=== PATIENT | female | born 1955 | race Caucasian/White ===

== ENCOUNTER → 2019-09-29 11:29 | Outpatient (BNVA) | payer MEDICARE, SELFPAY | PROVIDERS: Family Provider Internal Medicine; PCP Internal Medicine; Visit Provider Orthopaedic Surgery | DX: S42.211A Unspecified displaced fracture of surgical neck of right humerus, initial encounter for closed fracture (principal); X58.XXXA Exposure to other specified factors, initial encounter | CPT/HCPCS: 73030 ==

== ENCOUNTER 2019-10-01 06:00 | Outpatient (RCR) | payer MEDICARE, SELFPAY | END 2019-10-16 23:59 | disposition home or self-care (01) | LOC: APT 06:00 | PROVIDERS: Family Provider Internal Medicine; PCP Internal Medicine; Referring Provider Orthopaedic Surgery; Visit Provider Orthopaedic Surgery | DX: S42.201D Unspecified fracture of upper end of right humerus, subsequent encounter for fracture with routine healing (principal); X58.XXXD Exposure to other specified factors, subsequent encounter | CPT/HCPCS: 97110; 97161 ==

== ENCOUNTER 2019-10-17 06:00 | Outpatient (RCR) | payer MEDICARE, SELFPAY | END 2019-11-14 23:59 | disposition home or self-care (01) | LOC: APT 06:00 | PROVIDERS: Family Provider Internal Medicine; PCP Internal Medicine; Referring Provider Orthopaedic Surgery; Visit Provider Orthopaedic Surgery | DX: S42.201D Unspecified fracture of upper end of right humerus, subsequent encounter for fracture with routine healing (principal); X58.XXXD Exposure to other specified factors, subsequent encounter | CPT/HCPCS: 97110; 97112 ==

== ENCOUNTER → 2019-10-26 13:03 | Outpatient (BNVA) | payer MEDICARE, SELFPAY | PROVIDERS: Family Provider Internal Medicine; PCP Internal Medicine; Visit Provider Orthopaedic Surgery | DX: S42.211A Unspecified displaced fracture of surgical neck of right humerus, initial encounter for closed fracture (principal); X58.XXXA Exposure to other specified factors, initial encounter | CPT/HCPCS: 73030 ==

== ENCOUNTER 2019-11-15 06:00 | Outpatient (RCR) | payer MEDICARE, SELFPAY | END 2019-12-15 23:59 | disposition home or self-care (01) | LOC: APT 06:00 | PROVIDERS: Family Provider Internal Medicine; PCP Internal Medicine; Referring Provider Orthopaedic Surgery; Visit Provider Orthopaedic Surgery | DX: S42.201D Unspecified fracture of upper end of right humerus, subsequent encounter for fracture with routine healing (principal); X58.XXXD Exposure to other specified factors, subsequent encounter | CPT/HCPCS: 97110; 97112; 97140; 97164 ==

== ENCOUNTER → 2019-11-24 14:06 | Outpatient (BNVA) | payer MEDICARE, SELFPAY | PROVIDERS: Family Provider Internal Medicine; PCP Internal Medicine; Visit Provider Orthopaedic Surgery | DX: S42.201A Unspecified fracture of upper end of right humerus, initial encounter for closed fracture (principal); X58.XXXA Exposure to other specified factors, initial encounter | CPT/HCPCS: 73030 ==

== ENCOUNTER 2019-12-16 06:00 | Outpatient (RCR) | payer MEDICARE, SELFPAY | END 2020-01-14 23:59 | disposition home or self-care (01) | LOC: APT 06:00 | PROVIDERS: Family Provider Internal Medicine; PCP Internal Medicine; Referring Provider Orthopaedic Surgery; Visit Provider Orthopaedic Surgery | DX: S42.211D Unspecified displaced fracture of surgical neck of right humerus, subsequent encounter for fracture with routine healing (principal); X58.XXXD Exposure to other specified factors, subsequent encounter | CPT/HCPCS: 97110 ==

== ENCOUNTER → 2019-12-28 09:59 | Outpatient (BNVA) | payer MEDICARE, SELFPAY | PROVIDERS: Family Provider Internal Medicine; PCP Internal Medicine; Visit Provider Orthopaedic Surgery | DX: S42.201A Unspecified fracture of upper end of right humerus, initial encounter for closed fracture (principal); X58.XXXA Exposure to other specified factors, initial encounter | CPT/HCPCS: 73030 ==

== ENCOUNTER 2020-04-04 13:19 | Outpatient (CLI) | payer MEDICARE, SELFPAY ==
--- NOTE | 2020-04-04 13:23 | MM_ITS ---
WS: [id number] SCREENING DIGITAL MAMMOGRAM WITH CAD HISTORY: SCREENING COMPARISON: 02/02/2019, 01/13/2018, 01/07/2018 and 11/06/2016 Bilateral CC and MLO views submitted. Computer aided detection analyzed. Breast composition: There are scattered areas of fibroglandular density. Small cluster of calcificati ons along the lateral aspect of the RIGHT breast posteriorly near 8-9 o'clock. These calcifications w ere seen on prior studies but have slightly increased in conspicuity. There is also very slight disto rtion of soft tissues. RIGHT BREAST: Magnification views of suspicious calcification CC and MLO. True ML. MM/[place] [id number] IMPRESSION: BI-RADS: 0-Incomplete: Need additional imaging evaluation FOLLOW UP: Need Additional Imaging
== END 2020-04-04 13:20 | disposition home or self-care (01) ==
LOC: RADSHAW 13:22
PROVIDERS: PCP Internal Medicine; Visit Provider Internal Medicine
DX: Z12.31 Encounter for screening mammogram for malignant neoplasm of breast (principal); R92.1 Mammographic calcification found on diagnostic imaging of breast
CPT/HCPCS: 77067

== ENCOUNTER 2020-05-27 08:44 | Outpatient (CLI) | payer MEDICARE, SELFPAY ==
--- NOTE | 2020-05-27 08:50 | MM_ITS ---
WS: [id number] ADDITIONAL VIEWS RIGHT BREAST HISTORY: RT BREAST ABNORMAL MAMMO COMPARISON: 04/04/2020, 02/02/2019 at 01/13/2018 Magnification views right CC and MLO projection. True ML also submitted. Small cluster of calcifications persists in the lateral RIGHT breast posteriorly near 3:00 axis. Some of these calcifications are lucent center suggesting benignity. Additional calcifications or more so lid and irregular. No distortion. No soft tissue mass. MM/[place] [id number] IMPRESSION: BI-RADS: 4-Suspicious Finding-Biopsy Should Be Considered FOLLOW-UP: Biopsy Recommended Stereotactic biopsy RIGHT breast calcifications.
== END 2020-05-27 08:45 | disposition home or self-care (01) ==
LOC: RADSHAW 08:46
PROVIDERS: PCP Internal Medicine; Visit Provider Internal Medicine
DX: R92.8 Other abnormal and inconclusive findings on diagnostic imaging of breast (principal); R92.1 Mammographic calcification found on diagnostic imaging of breast
CPT/HCPCS: 77065

== ENCOUNTER 2020-06-09 11:56 | Outpatient (CLI) | payer MEDICARE, SELFPAY ==
--- NOTE | 2020-06-09 | MM_ITS ---
WS: [id number] STEREOTACTIC RIGHT BREAST BIOPSY WITH VACUUM ASSISTANCE. History: Heterogeneous right breast calcifications. Biopsy recommended for suspicious calcifications. Procedure, risks, and complications were discussed the patient who agreed to proceed. Prior imaging w as reviewed. Cluster of calcifications within the right breast are localized. Stereotactic imaging was performed. Patient was prepped and draped in usual sterile fashion. After 1% lidocaine, calcifications were targ eted stereotactically in the right breast. Small incision was made. Needle advanced into the cluster of calcifications right breast with imaging demonstrating appropriate position relative to the calcif ications. Multiple vacuum-assisted core biopsies were obtained. Postprocedure imaging demonstrates ca lcifications within the biopsy specimen. The biopsy cavity was lavaged. Titanium clip was placed at the biopsy site. Postprocedure imaging dem onstrates clip in good position. No immediate complications. MM/MM surgical specimen RT IMPRESSION: 1. Uncomplicated vacuum-assisted stereotactic biopsy of calcifications in the right breast. Pathology: Breast, right, calcifications at 1:00, stereotactic biopsy: -Focal ATYPICAL DUCTAL HYPERPLASIA with usual ductal hyperplasia. -No invasive carcinoma or ductal carcinoma in situ (DCIS) identified. -Microcalcifications identified within the ADH. See pathology report for additional detail Recommend BREAST SURGERY consultation for surgical excision considering the ADH component
--- NOTE | 2020-06-09 12:13 | MM_ITS ---
WS: [id number] STEREOTACTIC RIGHT BREAST BIOPSY WITH VACUUM ASSISTANCE. History: Heterogeneous right breast calcifications. Biopsy recommended for suspicious calcifications. Procedure, risks, and complications were discussed the patient who agreed to proceed. Prior imaging w as reviewed. Cluster of calcifications within the right breast are localized. Stereotactic imaging was performed. Patient was prepped and draped in usual sterile fashion. After 1% lidocaine, calcifications were targ eted stereotactically in the right breast. Small incision was made. Needle advanced into the cluster of calcifications right breast with imaging demonstrating appropriate position relative to the calcif ications. Multiple vacuum-assisted core biopsies were obtained. Postprocedure imaging demonstrates ca lcifications within the biopsy specimen. The biopsy cavity was lavaged. Titanium clip was placed at the biopsy site. Postprocedure imaging dem onstrates clip in good position. No immediate complications. MM/[place] biopsy [place] vac assist [id number] IMPRESSION: 1. Uncomplicated vacuum-assisted stereotactic biopsy of calcifications in the right breast. Pathology: Breast, right, calcifications at 1:00, stereotactic biopsy: -Focal ATYPICAL DUCTAL HYPERPLASIA with usual ductal hyperplasia. -No invasive carcinoma or ductal carcinoma in situ (DCIS) identified. -Microcalcifications identified within the ADH. See pathology report for additional detail Recommend BREAST SURGERY consultation for surgical excision considering the ADH component
--- NOTE | 2020-06-09 12:13 | MM_ITS ---
WS: [id number] STEREOTACTIC RIGHT BREAST BIOPSY WITH VACUUM ASSISTANCE. History: Heterogeneous right breast calcifications. Biopsy recommended for suspicious calcifications. Procedure, risks, and complications were discussed the patient who agreed to proceed. Prior imaging w as reviewed. Cluster of calcifications within the right breast are localized. Stereotactic imaging was performed. Patient was prepped and draped in usual sterile fashion. After 1% lidocaine, calcifications were targ eted stereotactically in the right breast. Small incision was made. Needle advanced into the cluster of calcifications right breast with imaging demonstrating appropriate position relative to the calcif ications. Multiple vacuum-assisted core biopsies were obtained. Postprocedure imaging demonstrates ca lcifications within the biopsy specimen. The biopsy cavity was lavaged. Titanium clip was placed at the biopsy site. Postprocedure imaging dem onstrates clip in good position. No immediate complications. MM/[place] [id number] IMPRESSION: 1. Uncomplicated vacuum-assisted stereotactic biopsy of calcifications in the right breast. Pathology: Breast, right, calcifications at 1:00, stereotactic biopsy: -Focal ATYPICAL DUCTAL HYPERPLASIA with usual ductal hyperplasia. -No invasive carcinoma or ductal carcinoma in situ (DCIS) identified. -Microcalcifications identified within the ADH. See pathology report for additional detail Recommend BREAST SURGERY consultation for surgical excision considering the ADH component
[2020-06-09 13:01] LABS: INR 0.92 (0.8-1.2)
== END 2020-06-09 11:57 | disposition home or self-care (01) ==
LOC: RADSHAW 12:01
PROVIDERS: PCP Internal Medicine; Visit Provider Internal Medicine
DX: R92.1 Mammographic calcification found on diagnostic imaging of breast (principal); N60.91 Unspecified benign mammary dysplasia of right breast
CPT/HCPCS: 19081; 77065; 85610; 88305; J7050

== ENCOUNTER 2020-07-20 13:01 | Outpatient (CLI) | payer MEDICARE, SELFPAY ==
--- NOTE | 2020-07-20 16:50 | ONC CON_ITS ---
Dr. Thompson New Patient Note Patient: Yue Ngo Unit #: [id number]: 1955 Dicatated By: Keshia Thompson M.D.Date of Visit: Jul 20, 2020 Onc MED New Patient/Consult Referring Physician: Dr. PERLA ARRIAZA M.D. History of Present Illness: Ms. Yue Ngo, is a 65-year-old female who ,during routine yearly mammogram, was found to have small clusters of calcification along the lateral aspect of the right breast posteriorly near the 8-9 o'clock and this calcification was seen on prior studies but have slightly increased in conspicuity thus, underwent stereotactic biopsy on June 09, 2020 and biopsy report came back focal atypical ductal hyperplasia with usual ductal hyperplasia, no invasive carcinoma or ductal carcinoma in situ identified, microcalcifications identified within the ADH. Patient has no family history of breast cancer, no history of breast biopsies in the past, but she has history of hormone supplement primary but last time she took about 10 years ago and still taking multivitamin for women. Patient denies any alcohol use but used to take off and on. Denies smoking but a former smoker. Her age of menarche was 11, and first living baby was at age 17. Denies any nipple discharge, denies any palpable mass in the breast but she has history of fibrocystic disease for which she gets yearly mammogram. Past Medical History: Ms. Ngo's medical history consists of anxiety, degenerative disease of the spine, depression, fibromyalgia, hypertension, and hypothyroidism. Past Surgical History: Ms. Hurtados surgical/procedural history consists of colposcopy, hysterectomy/bilateral salpingectomy-oophorectomy, knee arthroscopy, and tonsillectomy. Medications: Gabapentin 1 Capsule (of 300 mg) Oral t.i.d., hydroCHLOROthiazide 1 Tablet (of 25 mg) Oral daily, Levothyroxine Sodium 1 CA 125 Units/mL (of 75 mcg) Tablet Oral daily, [place] Carbonate 1 Capsule (of 150 mg) Oral b.i.d., Sertraline HCl 1 Tablet (of 100 mg) Oral daily Allergies: Milnacipran HCl, Nortriptyline HCl, and Penicillins. Social History: Ms. Ngo is and she is an unknown. Ms. Ngo quit smoking 5 years ago but had smoked 1.0 pack/day for 46 years. She has no history of drinking. Family History: Ms. Ngo's mother is alive: hypertension. Ms. Ngo's father at age 72: heart disease. Review Of Symptoms: Constitutional - Appetite is good and weight is stable. No fever, night sweats, or hot flashes. Energy level is fair, ENMT - Positive for sinus congestion/drainage. No mouth sores. Positive for sore throat, no difficulty swallowing, Hematologic/Lymphatic - No abnormal bruising or bleeding, Respiratory - No shortness of breath. No cough. No pleuritic pain or hemoptysis, Cardiovascular - No angina pain. No palpitations, Gastrointestinal - No nausea or vomiting. Positive for heartburn and acid reflux. No diarrhea or constipation. No blood in the stool or black stools, Genitourinary (F) - No dysuria or hematuria. No urinary frequency. No urgency or incontinence, Musculoskeletal - No joint or bone pain, Neurologic - No headache or dizziness. No numbness or tingling. No other focal neurologic symptoms, Psychiatric - Positive for anxiety and depression. No insomnia. Vital Signs: Performed on Jul 20, 2020 14:11: 0, 35.02 (HIGH), 1.97 sq.m, 64.00 in, 100 %, 60 /min, 24 /min, 145/75 mm(hg) (HIGH), 97.2 F (LOW), and 204.0 lbs (HIGH). Performance Status: 0 - Fully active, able to carry on all predisease activities without restrictions. (ECOG) Physical Examination: ENMT - No mouth sores, no thrush, no jaundice, Respiratory - Lungs are clear to auscultation, Cardiovascular - Regular rate and rhythm of heart, Abdomen - Soft, bowel sounds present, Extremities - No visible edema. Lab/Imaging: Most recent lab results are not available for this patient. Impression: Atypical ductal hyperplasia involving the right breast per stereotactic biopsy of right breast done on June 09, 2020 Obesity History of hormone supplement, Premarin, last dose was taken about 10 years ago, now on multivitamin for women. History of hypertension, hypothyroidism, ZAKIA and BSO on August 16, 2003. Anxiety/depression Plan: Discussed with patient regarding her right breast biopsy which was done on June 09, 2020 and shows atypical ductal hyperplasia, no evidence of ductal carcinoma site to or invasive carcinoma. Patient was advised that atypical ductal hyperplasia is not a cancer but is a precancerous condition and over the course of her lifetime, her risk of breast cancer is about 4 times higher than that women who do not have atypical ductal hyperplasia, and research has shown the risk of breast cancer increases in the years after atypical ductal hyperplasia is diagnosed like at 5 years after diagnosis she has about 7 to 8% risk of developing into invasive carcinoma and 10-year after diagnosis about 15%. Typically, patient with atypical ductal hyperplasia are offered various options which may reduce risk of developing invasive breast cancer including but not limited to lifestyle modification, in her case especially with weight reduction and regular exercise no alcohol use avoidance of estrogen in any form including herbs. And in addition to that regular mammogram follow-up on yearly basis and if there is any abnormality possible breast biopsy. And also discussed about role of hormonal therapy like tamoxifen, aromatase inhibitor or raloxifene, considering side effect versus benefits, raloxifene has better toxicity profile but still there is a risk of DVTs, pulmonary embolism, CVA, hypertriglyceridemia. And the patient was also offered referral to tertiary care center for any clinical trial available for breast cancer prevention or second opinion on biopsy report. Patient declined referral to tertiary care center and also declined hormonal therapy because of related side effects and toxicity. But rather prefer observation alone and would consider lifestyle changes including weight reduction planned and active lifestyle and avoid estrogen-based hormones in any form. Patient was given information regarding raloxifene and was advised to study and review and then return to clinic in 1 month for discussion. Signed By: Keshia Thompson M.D. <<Signature on File>>
== END 2020-07-20 13:02 | disposition home or self-care (01) ==
LOC: ONCMED 13:04
PROVIDERS: PCP Internal Medicine; Referring Provider Internal Medicine; Visit Provider Internal Medicine Hematology & Oncology
DX: N60.91 Unspecified benign mammary dysplasia of right breast (principal); E66.01 Morbid (severe) obesity due to excess calories; I10 Essential (primary) hypertension; E03.9 Hypothyroidism, unspecified; F41.9 Anxiety disorder, unspecified; F32.9 Major depressive disorder, single episode, unspecified; Z79.818 Long term (current) use of other agents affecting estrogen receptors and estrogen levels
CPT/HCPCS: 99203

== ENCOUNTER 2020-08-22 15:09 | Outpatient (CLI) | payer MEDICARE, SELFPAY ==
--- NOTE | 2020-08-22 16:54 | ONC FU_ITS ---
Dr. Thompson follow up note Patient: Yue Ngo Unit #: [id number]: 1955 Dicatated By: Keshia Thompson M.D.Date of Visit:Aug 22, 2020 Onc Med Follow-up/Prog Note History of Present Illness: Ms. Yue Ngo, is a 65-year-old female who ,during routine yearly mammogram, was found to have small clusters of calcification along the lateral aspect of the right breast posteriorly near the 8-9 o'clock and this calcification was seen on prior studies but have slightly increased in conspicuity thus, underwent stereotactic biopsy on June 09, 2020 and biopsy report came back focal atypical ductal hyperplasia with usual ductal hyperplasia, no invasive carcinoma or ductal carcinoma in situ identified, microcalcifications identified within the ADH. Patient has no family history of breast cancer, no history of breast biopsies in the past, but she has history of hormone supplement primary but last time she took about 10 years ago and still taking multivitamin for women. Patient denies any alcohol use but used to take off and on. Denies smoking but a former smoker. Her age of menarche was 11, and first living baby was at age 17. Denies any nipple discharge, denies any palpable mass in the breast but she has history of fibrocystic disease for which she gets yearly mammogram. Came for follow-up, denies any specific complaints, no fever chills, no nausea or vomiting, no diarrhea or constipation, patient said she has read about raloxifene, she is here to discuss further. Medications: Gabapentin 1 Capsule (of 300 mg) Oral t.i.d., hydroCHLOROthiazide 1 Tablet (of 25 mg) Oral daily, Levothyroxine Sodium 1 CA 125 Units/mL (of 75 mcg) Tablet Oral daily, [place] Carbonate 1 Capsule (of 150 mg) Oral b.i.d., Sertraline HCl 1 Tablet (of 100 mg) Oral daily Allergies: Milnacipran HCl, Nortriptyline HCl, and Penicillins. Review of Systems: Constitutional - Appetite is good and weight is stable. No fever, night sweats, or hot flashes. Energy level is fair, ENMT - Positive for sinus congestion/drainage. No mouth sores. Positive for sore throat, no difficulty swallowing, Hematologic/Lymphatic - No abnormal bruising or bleeding, Respiratory - No shortness of breath. No cough. No pleuritic pain or hemoptysis, Cardiovascular - No angina pain. No palpitations, Gastrointestinal - No nausea or vomiting. Positive for heartburn and acid reflux. No diarrhea or constipation. No blood in the stool or black stools, Genitourinary (F) - No dysuria or hematuria. No urinary frequency. No urgency or incontinence, Musculoskeletal - No joint or bone pain, Neurologic - No headache or dizziness. No numbness or tingling. No other focal neurologic symptoms, Psychiatric - Positive for anxiety and depression. No insomnia. Vital Signs: Performed on Aug 22, 2020 15:55 Height - 64.00 in Weight - 205.6 lbs (HIGH) BSA - 1.98 sq.m BMI - 35.29 (HIGH) Temperature - 97.4 F (LOW) Pulse - 70 /min Respiration - 18 /min BP - 150/84 mm(hg) (HIGH) O2 Sat - 97 % Pain - 0 Performance Status: 0 - Fully active, able to carry on all predisease activities without restrictions. (ECOG) Physical Examination: ENMT - No mouth sores, no thrush, no jaundice, Respiratory - Lungs are clear to auscultation, Cardiovascular - Regular rate and rhythm of heart, Abdomen - Soft, bowel sounds present, Extremities - No visible edema. Lab/Imaging: Most recent lab results are not available for this patient. Impression: Atypical ductal hyperplasia involving the right breast per stereotactic biopsy of right breast done on June 09, 2020 Obesity History of hormone supplement, Premarin, last dose was taken about 10 years ago, now on multivitamin for women. History of hypertension, hypothyroidism, ZAKIA and BSO on August 16, 2003. Anxiety/depression Plan: Discussed with patient regarding her disease status, as mentioned earlier patient had atypical ductal hyperplasia which make her high risk for developing breast cancer, she was offered preventive therapy with raloxifene and was provided with literature, and also offered evaluation at tertiary care center regarding breast cancer prevention related clinical trial, if available., Patient came back today for follow-up and have decided reluctantly to consider raloxifene 60 mg p.o. daily for 1 month if tolerated then she will continue otherwise would prefer observation alone with a follow-up mammogram which is scheduled for in 6 months and also declined referral to tertiary care center for clinical trial. We will give her prescription for raloxifene 60 mg p.o. daily, all the side effects possible benefits associated with raloxifene like hot flashes, risk of thromboembolic phenomena, mood swings, were mentioned, further teaching will be done by chemotherapy nurse Patient return to clinic in 1 month for follow-up. Signed By: Keshia Thompson M.D. <<Signature on File>>
== END 2020-08-22 15:10 | disposition home or self-care (01) ==
LOC: ONCMED 15:11
PROVIDERS: PCP Internal Medicine; Visit Provider Internal Medicine Hematology & Oncology
DX: N60.91 Unspecified benign mammary dysplasia of right breast (principal); E66.9 Obesity, unspecified; I10 Essential (primary) hypertension; E03.9 Hypothyroidism, unspecified; F41.9 Anxiety disorder, unspecified; F32.9 Major depressive disorder, single episode, unspecified; Z79.890 Hormone replacement therapy
CPT/HCPCS: 99214

== ENCOUNTER 2020-11-07 09:28 | Outpatient (CLI) | payer MEDICARE, SELFPAY ==
--- NOTE | 2020-11-11 19:45 | ONC FU_ITS ---
Leticia Hirsch Patient Note Patient: Yue Ngo Unit #: [id number]: 1955 Dictated By: Pura HanDate of Visit: Nov 07, 2020 Onc MED Follow-Up/Prog Note Chief Complaint: Atypical ductal hyperplasia right breast History of Present Illness: Ms. Ngo is a 65-year-old female who was found to have small clusters of calcification along the lateral aspect of the right breast- posteriorly near the 8-9 o'clock on routine mammogram on 04/04/2020. This calcification was seen on prior studies but had slightly increased in conspicuity. She then underwent stereotactic biopsy on June 09, 2020. The biopsy report came back focal atypical ductal hyperplasia with usual ductal hyperplasia; no invasive carcinoma or ductal carcinoma in situ identified; microcalcifications identified within the ADH. Ms Ngo reports she has no family history of breast cancer, no history of breast biopsies in the past, but she has history of hormone supplement primary. The last time she took hormones was about 10 years ago. She states she is still taking multivitamin for women. Patient denies any alcohol use. Denies smoking currently but is a former smoker. Her age of menarche was 11, and first living baby was at age 17. Denies any nipple discharge, denies any palpable mass in the breast but she has history of fibrocystic disease for which she gets yearly mammogram. Ms Ferguson was seen by Dr Thompson on 08/22/2020. They did discuss raloxifene for preventative therapy. She was also offered evaluation at tertiary [facility] regarding breast cancer prevention related clinical trial but declined that referral. She did agree to a trial of the raloxifene. She is also aware that she will need follow-up mammogram in 6 months. Ms. Ngo is here today for follow-up. She did take the raloxifene for 1 month and states she tolerated it well. She was not given any refills at the original prescription. She has had delay of her follow-up due to increment weather. She states she feels that she has tolerated it well. She states that she has not had any increase in hot flashes. She denies any mood swings. She denies any fever or chills. She states she has noticed some dry eyes but states that she also has propane heat and count of contributed to that as well. The dry eyes do respond to ghbm-gge-ytorzed eyedrops. She denies any taste changes. She denies any bone pain or muscle aches. She states her energy is good. She has no new concerns. She denies any breast changes that she is aware of. She states she is due for mammogram in November. She denies any diarrhea or constipation. She denies any lower extremity edema. She states that she has not had any shortness of breath orthopnea. Her ECOG is 0. Past Medical History: Anxiety Degenerative disease of the spine Depression Fibromyalgia Hypertension Hypothyroidism Past Surgical History: Colposcopy Hysterectomy/bilateral salpingectomy-oophorectomy Knee arthroscopy Tonsillectomy Allergies: Milnacipran HCl, Nortriptyline HCl, and Penicillins. Medications: Gabapentin 1 Capsule (of 300 mg) Oral t.i.d. hydroCHLOROthiazide 1 Tablet (of 25 mg) Oral b.i.d. Levothyroxine Sodium 1 CA 125 Units/mL (of 75 mcg) Tablet Oral daily [place] Carbonate 1 Capsule (of 150 mg) Oral b.i.d. Sertraline HCl 1 Tablet (of 100 mg) Oral daily Family History: Ms. Ngo's mother is alive: hypertension. Ms. Ngo's father at age 72: heart disease. Social History: Ms. Ngo is and she is an unknown. Ms. Ngo quit smoking 6 years ago but had smoked 1.0 pack/day for 46 years. She has no history of drinking. Review Of Symptoms: Constitutional Denies fevers, chills, night sweats, excessive fatigue or weight loss. Allergic/Immunologic No reactions. Eyes Denies significant visual changes. No diplopia. No amaurosis. Some dryness but thinks it could be do to using propane heat. ENMT Denies changes in hearing, sore throat, mouth sores, difficulty or changes in swallowing ability, and/or sinus drainage. Hematologic/Lymphatic Denies easy bruising or bleeding. The patient denies any tender or palpable lymph nodes. Breasts No concerns, no changes. Respiratory Denies dyspnea on exertion, chest pain, cough or hemoptysis. Denies orthopnea. Cardiovascular Denies anginal chest pain, palpitations or orthopnea. Gastrointestinal Denies nausea, vomiting, diarrhea, GI bleeding, or constipation. Denies change in bowel habits and/or stool color, no heartburn or early satiety. Genitourinary (F) No hematuria, hesitancy, incontinence, vaginal bleeding, discharge or other problems with urination. Musculoskeletal Denies joint pain, swelling or redness. No decreased range of motion. Integumentary Denies chronic rashes, inflammation, ulcerations or skin changes. Neurologic Denies headache, blurred vision, and no areas of focal weakness or numbness. Normal gait. No sensory problems. Psychiatric Denies insomnia, depression, elder or mood swings. Vital Signs: Performed on Nov 07, 2020 09:45 Height - 64.00 in Weight - 206.6 lbs (HIGH) BSA - 1.98 sq.m BMI - 35.46 (HIGH) Temperature - 97.1 F (LOW) Pulse - 67 /min Respiration - 18 /min BP - 161/74 mm(hg) (HIGH) O2 Sat - 98 % Pain - 0,0 - Fully active, able to carry on all predisease activities without restrictions. (ECOG) Physical Examination: Constitutional Alert, oriented, no acute distress. Skin pink, warm and dry. Head Normocephalic; atraumatic. Eyes Conjunctivae and sclerae are clear and without icterus. Pupils are reactive and equal. Hematologic/Lymphatic No petechiae or purpura. No tender or palpable lymph nodes in the cervical or supraclavicular areas. Respiratory Lungs are clear to auscultation without rhonchi or wheezing. Cardiovascular Regular rate and rhythm of heart without murmurs,clicks, gallops or rubs. Back/Spine Non-tender to palpation. Extremities No visible deformities, no cyanosis, clubbing or edema. Musculoskeletal No tenderness or swelling, normal range of motion without obvious weakness. Integumentary No rashes or lesions. Neurologic No sensory or motor deficits, normal cerebellar function, normal gait. Psychiatric Alert and oriented times three. Coherent speech. Verbalizes understanding of our discussions today. Impression: Atypical ductal hyperplasia involving the right breast per stereotactic biopsy of right breast done on June 09, 2020 Obesity History of hormone supplement, Premarin, last dose was taken about 10 years ago, now on multivitamin for women. History of hypertension, hypothyroidism, ZAKIA and BSO on August 16, 2003. Anxiety/depression Plan: PROBLEMS ADDRESSED TODAY 1. Atypical ductal hyperplasia involving the right breast A. Dr Thompson has discussed with Ms Ngo her disease status, as mentioned earlier patient had atypical ductal hyperplasia which make her high risk for developing breast cancer. She was offered preventive therapy with raloxifene. She was also offered evaluation at [facility] regarding breast cancer prevention related clinical trial, if available but she declined a referral to [facility] for clinical trial at this time. B. She has had a trial of 1 month of raloxifene 60 mg daily and is tolerated this well. She did not have refills so she has been off of it for approximately 2 weeks. C. We will plan to refill her raloxifene 60 mg with additional refills and have her resume it as she is tolerating it well. D. She will be due for follow-up mammography in November 2020. E. We will have her return back to see Dr. Thompson in 1 month after she has had her follow-up mammogram so they can review the results and determine further plan of care and follow-up plan. F. Ms. Ngo was instructed to contact us in the interim should questions or problems arise. Signed By: Pura Han-, AODELIA Thompson <<Signature on File>>
== END 2020-11-07 09:29 | disposition home or self-care (01) ==
LOC: ONCMED 09:33
PROVIDERS: PCP Internal Medicine; Visit Provider Nurse Practitioner
DX: N60.91 Unspecified benign mammary dysplasia of right breast (principal); Z79.899 Other long term (current) drug therapy
CPT/HCPCS: 99214

== ENCOUNTER 2021-01-10 12:47 | Outpatient (CLI) | payer MEDICARE, SELFPAY ==
--- NOTE | 2021-01-10 13:03 | MM_ITS ---
WS: [id number] DIAGNOSTIC BILATERAL DIGITAL MAMMOGRAM WITH CAD HISTORY: HYPERPLASIA COMPARISON: 06/09/2020, 04/04/2020 and 02/02/2019 and 10/27/2015 TECHNIQUE: Bilateral craniocaudad, mediolateral oblique, and mediolateral views are submitted. Spot c ompression RIGHT MLO and cc. Computer aided detection utilized. Breast composition: There are scattered areas of fibroglandular density. Postbiopsy changes in the up per outer quadrant of the RIGHT breast are stable. There is a biopsy clip present. No increasing calc ification or soft tissue mass at this site. Long-term stability of a linear asymmetry with calcificat ions in the medial RIGHT breast anteriorly. Bilateral breast arterial calcifications. MM/[id number] IMPRESSION: BI-RADS: 2-Benign FOLLOW UP: 1 Year Follow-up
--- NOTE | 2021-01-10 16:40 | ONC FU_ITS ---
Dr. Thompson follow up note Patient: Yue Ngo Unit #: [id number]: 1955 Dicatated By: Keshia Thompson M.D.Date of Visit:Jan 10, 2021 Onc Med Follow-up/Prog Note History of Present Illness: Ms. Ngo is a 65-year-old female who was found to have small clusters of calcification along the lateral aspect of the right breast- posteriorly near the 8-9 o'clock on routine mammogram on 04/04/2020. This calcification was seen on prior studies but had slightly increased in conspicuity. She then underwent stereotactic biopsy on June 09, 2020. The biopsy report came back focal atypical ductal hyperplasia with usual ductal hyperplasia; no invasive carcinoma or ductal carcinoma in situ identified; microcalcifications identified within the ADH. Ms Ngo reports she has no family history of breast cancer, no history of breast biopsies in the past, but she has history of hormone supplement primary. The last time she took hormones was about 10 years ago. She states she is still taking multivitamin for women. Patient denies any alcohol use. Denies smoking currently but is a former smoker. Her age of menarche was 11, and first living baby was at age 17. Denies any nipple discharge, denies any palpable mass in the breast but she has history of fibrocystic disease for which she gets yearly mammogram. Ms Ferguson was seen on 08/22/2020. did discuss raloxifene for preventative therapy. She was also offered evaluation at tertiary [facility] regarding breast cancer prevention related clinical trial but declined that referral. She did agree to a trial of the raloxifene. She is also aware that she will need follow-up mammogram in 6 months. Follow-up mammogram done on January 10, 2021 shows BI-RADS 2, benign Came for follow-up, denies any specific complaints, no fever chills, no nausea or vomiting, no diarrhea or constipation, no night sweats, tolerating raloxifene well otherwise Medications: Gabapentin 1 Capsule (of 300 mg) Oral t.i.d., hydroCHLOROthiazide 1 Tablet (of 25 mg) Oral b.i.d., Levothyroxine Sodium 1 CA 125 Units/mL (of 75 mcg) Tablet Oral daily, [place] Carbonate 1 Capsule (of 150 mg) Oral b.i.d., Sertraline HCl 1 Tablet (of 100 mg) Oral daily Allergies: Milnacipran HCl, Nortriptyline HCl, and Penicillins. Review of Systems: Review of Systems is not available for this patient. Vital Signs: Performed on Jan 10, 2021 14:39 Height - 64.00 in Weight - 200.8 lbs (LOW) BSA - 1.96 sq.m BMI - 34.47 (HIGH) Temperature - 97.5 F (LOW) Pulse - 62 /min Respiration - 18 /min BP - 141/74 mm(hg) (HIGH) O2 Sat - 98 % Pain - 0 Fatigue - 5 Performance Status: 0 - Fully active, able to carry on all predisease activities without restrictions. (ECOG) Physical Examination: ENMT - No mouth sores, no thrush, no jaundice, Respiratory - Lungs are clear to auscultation, Cardiovascular - Regular rate and rhythm of heart, Abdomen - Soft, bowel sounds present, Extremities - No visible edema. Lab/Imaging: Most recent lab results are not available for this patient. Impression: Atypical ductal hyperplasia involving the right breast per stereotactic biopsy of right breast done on June 09, 2020, Started on raloxifene 60 mg p.o. daily Obesity History of hormone supplement, Premarin, last dose was taken about 10 years ago, now on multivitamin for women. History of hypertension, hypothyroidism, ZAKIA and BSO on August 16, 2003. Anxiety/depression Plan: Discussed with patient regarding her mammogram which shows no abnormality, Clinically, patient doing well with no new signs symptoms, tolerating raloxifene as a chemoprevention well, will continue with same and return to clinic in 6 months for follow-up and will also continue with yearly mammogram Signed By: Keshia Thompson M.D. <<Signature on File>>
== END 2021-01-10 12:48 | disposition home or self-care (01) ==
PROVIDERS: PCP Internal Medicine; Visit Provider Internal Medicine Hematology & Oncology
DX: N60.91 Unspecified benign mammary dysplasia of right breast (principal); E66.9 Obesity, unspecified; I10 Essential (primary) hypertension; E03.9 Hypothyroidism, unspecified; F41.9 Anxiety disorder, unspecified; F32.9 Major depressive disorder, single episode, unspecified; Z79.890 Hormone replacement therapy; Z79.899 Other long term (current) drug therapy
CPT/HCPCS: 77066; 99214

== ENCOUNTER → 2021-05-30 15:41 | Outpatient (BNVA) | payer MEDICARE, SELFPAY | PROVIDERS: PCP Internal Medicine; Visit Provider Nurse Practitioner Family | DX: Z20.822 Contact with and (suspected) exposure to COVID-19 (principal); J06.9 Acute upper respiratory infection, unspecified | CPT/HCPCS: 87635 ==

== ENCOUNTER 2021-06-06 07:26 | Outpatient (CLI) | payer MEDICARE, SELFPAY ==
[2021-06-06 07:35] VITALS: BP 137/58; PULSE 55; RESP 16; TEMP 36.7; O2SAT 96; BMI 33.3
[2021-06-06 07:40] VITALS: BP 137/58; PULSE 55; RESP 16; TEMP 36.7; O2SAT 98
[2021-06-06 08:00] VITALS: BP 161/72; PULSE 49; RESP 17; O2SAT 96
[2021-06-06 09:00] VITALS: BP 155/69; PULSE 46; RESP 16; TEMP 36.4; O2SAT 97
[2021-06-06 10:06] VITALS: BMI 33.3
== END 2021-06-06 07:27 | disposition home or self-care (01) ==
LOC: OPS 07:37
PROVIDERS: PCP Internal Medicine; Visit Provider Internal Medicine
DX: U07.1 COVID-19 (principal)
CPT/HCPCS: 96365

== ENCOUNTER 2021-08-15 14:16 | Outpatient (CLI) | payer MEDICARE, SELFPAY ==
--- NOTE | 2021-08-15 15:06 | ONC FU_ITS ---
Dr. Thompson follow up note Patient: Yue Ngo Unit #: [id number]: 1955 Dicatated By: Keshia Thompson M.D.Date of Visit:Aug 15, 2021 Onc Med Follow-up/Prog Note History of Present Illness: Ms. Ngo is a 66-year-old female who was found to have small clusters of calcification along the lateral aspect of the right breast- posteriorly near the 8-9 o'clock on routine mammogram on 04/04/2020. This calcification was seen on prior studies but had slightly increased in conspicuity. She then underwent stereotactic biopsy on June 09, 2020. The biopsy report came back focal atypical ductal hyperplasia with usual ductal hyperplasia; no invasive carcinoma or ductal carcinoma in situ identified; microcalcifications identified within the ADH. Ms Ngo reports she has no family history of breast cancer, no history of breast biopsies in the past, but she has history of hormone supplement primary. The last time she took hormones was about 10 years ago. She states she is still taking multivitamin for women. Patient denies any alcohol use. Denies smoking currently but is a former smoker. Her age of menarche was 11, and first living baby was at age 17. Denies any nipple discharge, denies any palpable mass in the breast but she has history of fibrocystic disease for which she gets yearly mammogram. Ms Ferguson was seen on 08/22/2020. did discuss raloxifene for preventative therapy. She was also offered evaluation at tertiary [facility] regarding breast cancer prevention related clinical trial but declined that referral. She did agree to a trial of the raloxifene. She is also aware that she will need follow-up mammogram in 6 months. Follow-up mammogram done on January 10, 2021 shows BI-RADS 2, benign Came for follow-up, denies any specific complaint except generalized weakness and fatigue which is kind of progressive since she is on raloxifene, as per patient initially she thought it could be due to her fibromyalgia. But no night sweats, no fever chills, no nausea or vomiting, no diarrhea constipation, no dysuria no hematuria, no new bony pains. Medications: Gabapentin 1 Capsule (of 300 mg) Oral t.i.d., hydroCHLOROthiazide 1 Tablet (of 25 mg) Oral b.i.d., Levothyroxine Sodium 1 CA 125 Units/mL (of 75 mcg) Tablet Oral daily, [place] Carbonate 1 Capsule (of 150 mg) Oral b.i.d., Sertraline HCl 1 Tablet (of 100 mg) Oral daily Allergies: Milnacipran HCl, Nortriptyline HCl, and Penicillins. Review of Systems: Review of Systems is not available for this patient. Vital Signs: Vitals are not available for this patient. Performance Status: 0 - Fully active, able to carry on all predisease activities without restrictions. (ECOG) Physical Examination: ENMT - No mouth sores, no thrush, no jaundice, Respiratory - Lungs are clear to auscultation, Cardiovascular - Regular rate and rhythm of heart, Abdomen - Soft, bowel sounds present, Extremities - No visible edema. Lab/Imaging: Most recent lab results are not available for this patient. Impression: Atypical ductal hyperplasia involving the right breast per stereotactic biopsy of right breast done on June 09, 2020, Started on raloxifene 60 mg p.o. daily Obesity History of hormone supplement, Premarin, last dose was taken about 10 years ago, now on multivitamin for women. History of hypertension, hypothyroidism, ZAKIA and BSO on August 16, 2003. Anxiety/depression Plan: Discussed with patient regarding her concerns and questions patient is having progressive generalized weakness and fatigue which could be multifactorial, including but not limited to raloxifene or her underlying fibromyalgia or she may have sleep apnea due to overweight., At this point, at patient's request we will hold raloxifene for 1 month and then patient preferred telemed visit to discuss, if her symptoms improve, then she may consider discontinue raloxifene for good but continue with follow-up mammogram which is scheduled for December 2021 Signed By: Keshia Thompson M.D. <<Signature on File>>
== END 2021-08-15 14:17 | disposition home or self-care (01) ==
PROVIDERS: PCP Internal Medicine; Visit Provider Internal Medicine Hematology & Oncology
DX: N60.91 Unspecified benign mammary dysplasia of right breast (principal); E66.9 Obesity, unspecified; I10 Essential (primary) hypertension; E03.9 Hypothyroidism, unspecified; F41.9 Anxiety disorder, unspecified; F32.9 Major depressive disorder, single episode, unspecified; Z79.810 Long term (current) use of selective estrogen receptor modulators (SERMs)
CPT/HCPCS: 99214

== ENCOUNTER 2021-09-20 09:00 | Outpatient (CLI) | payer MEDICARE, SELFPAY ==
--- NOTE | 2021-09-22 09:13 | ONC FU_ITS ---
Dr. Thompson follow up note Patient: Yue Ngo Unit #: [id number]: 1955 Dicatated By: Keshia Thompson M.D.Date of Visit:Sep 20, 2021 Onc Med Follow-up/Prog Note History of Present Illness: Ms. Ngo is a 66-year-old female who was found to have small clusters of calcification along the lateral aspect of the right breast- posteriorly near the 8-9 o'clock on routine mammogram on 04/04/2020. This calcification was seen on prior studies but had slightly increased in conspicuity. She then underwent stereotactic biopsy on June 09, 2020. The biopsy report came back focal atypical ductal hyperplasia with usual ductal hyperplasia; no invasive carcinoma or ductal carcinoma in situ identified; microcalcifications identified within the ADH. Ms Ngo reports she has no family history of breast cancer, no history of breast biopsies in the past, but she has history of hormone supplement primary. The last time she took hormones was about 10 years ago. She states she is still taking multivitamin for women. Patient denies any alcohol use. Denies smoking currently but is a former smoker. Her age of menarche was 11, and first living baby was at age 17. Denies any nipple discharge, denies any palpable mass in the breast but she has history of fibrocystic disease for which she gets yearly mammogram. Ms Ferguson was seen on 08/22/2020. did discuss raloxifene for preventative therapy. She was also offered evaluation at tertiary [facility] regarding breast cancer prevention related clinical trial but declined that referral. She did agree to a trial of the raloxifene. She is also aware that she will need follow-up mammogram in 6 months., Raloxifene was put on hold on August 15, 2021 because of generalized weakness and fatigue Follow-up mammogram done on January 10, 2021 shows BI-RADS 2, benign Evaluated via telephone, patient denies any specific complaint except feeling somewhat better since she is off her raloxifene since August 15, 2021. But still having episode of generalized weakness and fatigue, patient said in the past she was evaluated for sleep apnea but she could not sleep and reschedule was suggested but patient did not go for it, considering her body weight, she may have sleep apnea and her generalized weakness and fatigue could be due to sleep apnea. But denies any fever chills denies any nausea or vomiting denies any diarrhea or constipation denies any nipple discharge denies any breast mass. . Medications: Gabapentin 1 Capsule (of 300 mg) Oral t.i.d., hydroCHLOROthiazide 1 Tablet (of 25 mg) Oral b.i.d., Levothyroxine Sodium 1 [place] 125 Units/mL (of 75 mcg) Tablet Oral daily, [place] Carbonate 1 Capsule (of 150 mg) Oral b.i.d., Sertraline HCl 1 Tablet (of 100 mg) Oral daily Allergies: Milnacipran HCl, Nortriptyline HCl, and Penicillins. Review of Systems: Review of Systems is not available for this patient. Vital Signs: Vitals are not available for this patient. Performance Status: 1 - No physically strenuous activity, but ambulatory and able to carry out light or sedentary work (e.g. office work, light house work). (ECOG) Physical Examination: ENMT - Patient denies any mouth sores or thrush or jaundice, Respiratory - Denies any shortness of breath or wheezing, Cardiovascular - Denies any chest pain or palpitation, Abdomen - Denies any abdominal pain or fullness, Extremities - Complaining of mild edema. Lab/Imaging: Most recent lab results are not available for this patient. Impression: Atypical ductal hyperplasia involving the right breast per stereotactic biopsy of right breast done on June 09, 2020, Started on raloxifene 60 mg p.o. daily, Put on hold on August 15, 2021 because of progressive generalized weakness and fatigue Obesity History of hormone supplement, Premarin, last dose was taken about 10 years ago, now on multivitamin for women. History of hypertension, hypothyroidism, ZAKIA and BSO on August 16, 2003. Anxiety/depression Plan: Discussed with patient regarding her question concern, as per patient she is feeling somewhat better since she is off raloxifene but still having a episode of generalized weakness and fatigue, patient thinks she may have sleep apnea, as in the past sleep study was ordered but it was not completed as patient could not sleep, reschedule was recommended but patient did not go for it. As for generalized weakness and fatigue is concerned, probably multifactorial could be due to sleep apnea, patient says she may prefer portable sleep study, will inquire from pulmonology if portable sleep study is available. In the meantime we will continue to hold raloxifene until sleep apnea is confirmed and treated or reevaluate her in a month and if her symptoms continue to improve, we may rechallenge her with raloxifene and if there is a worsening of her symptoms, then will discontinue raloxifene permanently. Return to clinic in 1 month for further discussion. Signed By: Keshia Thompson M.D. <<Signature on File>>
== END 2021-09-20 09:01 | disposition home or self-care (01) ==
LOC: ONCMED 09-21 12:59
PROVIDERS: PCP Internal Medicine; Visit Provider Internal Medicine Hematology & Oncology
DX: N60.91 Unspecified benign mammary dysplasia of right breast (principal); R53.1 Weakness; R53.82 Chronic fatigue, unspecified; E66.9 Obesity, unspecified; I10 Essential (primary) hypertension; E03.9 Hypothyroidism, unspecified; F41.9 Anxiety disorder, unspecified; F32.9 Major depressive disorder, single episode, unspecified; Z79.818 Long term (current) use of other agents affecting estrogen receptors and estrogen levels; Z79.899 Other long term (current) drug therapy
CPT/HCPCS: 99214

== ENCOUNTER 2021-12-26 11:09 | Outpatient (CLI) | payer MEDICARE, SELFPAY ==
--- NOTE | 2021-12-26 11:19 | MM_ITS ---
WS: [id number] BILATERAL 3D TOMOSYNTHESIS DIGITAL DIAGNOSTIC MAMMOGRAPHY WITH CAD CLINICAL INFORMATION: HX OF BREAST CA HISTORY: RIGHT breast soreness COMPARISON: January 10, 2021 TECHNIQUE: Bilateral CC, MLO, and ML views. FINDINGS: Scattered fibroglandular densities bilaterally. Postoperative lumpectomy with parenchymal scarring RI GHT breast is unchanged. Biopsy clip upper outer RIGHT breast. Incidental dystrophic calcifications R IGHT breast. Vascular calcification. Increasing 5 mm asymmetric density inferior quadrant RIGHT breast best seen on the MLO view. Recommen d spot compression views and ultrasound for further evaluation. MM/[place] [id number] IMPRESSION: BI-RADS: 0-Incomplete: Need additional imaging evaluation FOLLOW UP: Need Additional Imaging RECOMMEND RIGHT BREAST DIAGNOSTIC MAMMOGRAPHY AND ULTRASOUND IN FURTHER EVALUAT ION.
== END 2021-12-26 11:10 | disposition home or self-care (01) ==
PROVIDERS: PCP Internal Medicine; Visit Provider Internal Medicine Hematology & Oncology
DX: Z85.3 Personal history of malignant neoplasm of breast (principal)
CPT/HCPCS: 77062

== ENCOUNTER 2022-01-10 12:36 | Outpatient (CLI) | payer MEDICARE, SELFPAY ==
--- NOTE | 2022-01-10 13:03 | MM_ITS ---
WS: [id number] RIGHT 3D TOMOSYNTHESIS DIGITAL MAMMOGRAPHY WITH CAD CLINICAL INFORMATION: ABNORMAL MAMMOGRAM COMPARISON: December 26, 2021 TECHNIQUE: 3 views of the right breast were obtained. FINDINGS: Scattered fibroglandular densities of the right breast. Prior postoperative changes lumpectomy upper outer RIGHT breast. Adjacent biopsy clip. Previously described 5 mm asymmetric density compresses out on the available spot compression views. No suspicious abnormalities. Recommend return to annual [facility] mammography. MM/[id number] IMPRESSION: BI-RADS: 2-Benign FOLLOW UP: 1 Year Follow-up Recommend return to annual diagnostic mammography.
== END 2022-01-10 12:37 | disposition home or self-care (01) ==
LOC: RAD 12:37
PROVIDERS: PCP Internal Medicine; Visit Provider Internal Medicine Hematology & Oncology
DX: R92.8 Other abnormal and inconclusive findings on diagnostic imaging of breast (principal)
CPT/HCPCS: 77061

== ENCOUNTER 2022-10-24 12:00 | Outpatient (CLI) | payer MEDICARE, SELFPAY | END 2022-10-24 12:01 | disposition home or self-care (01) | LOC: SLEEP 10-29 12:29 | PROVIDERS: PCP Internal Medicine; Visit Provider Internal Medicine | DX: G47.10 Hypersomnia, unspecified (principal) | CPT/HCPCS: G0399 ==

== ENCOUNTER 2023-01-17 13:34 | Outpatient (CLI) | payer MEDICARE, SELFPAY ==
--- NOTE | 2023-01-17 13:42 | MM_ITS ---
WS: [id number] BILATERAL 3D TOMOSYNTHESIS DIGITAL DIAGNOSTIC MAMMOGRAPHY WITH CAD CLINICAL INFORMATION: HX OF HYPERPLASIA HISTORY: Prior lumpectomy. COMPARISON: December 2021 TECHNIQUE: Bilateral CC, MLO, and ML views. FINDINGS: Scattered fibroglandular densities bilaterally. Biopsy clip RIGHT breast. Benign punctate calcificati ons RIGHT breast. Vascular calcification. Prior postoperative changes lumpectomy upper-outer RIGHT br east. No suspicious focal mass, asymmetry, calcifications, or architectural distortion. No evidence of levar gnancy. MM/[place] [id number] IMPRESSION: BI-RADS: 2-Benign FOLLOW UP: 1 Year Follow-up Recommend return to annual diagnostic mammography.
== END 2023-01-17 13:35 | disposition home or self-care (01) ==
LOC: RAD 13:39
PROVIDERS: PCP Internal Medicine; Visit Provider Internal Medicine
DX: R92.8 Other abnormal and inconclusive findings on diagnostic imaging of breast (principal)
CPT/HCPCS: 77062; G0279

== ENCOUNTER 2023-05-02 11:24 | Outpatient (CLI) | payer MEDICARE, SELFPAY ==
--- NOTE | 2023-05-02 11:34 | XR_ITS ---
WS: [id number] Left shoulder, 3 views, 05/02/2023 Clinical Data: L SHOULDER PAIN Comparison: None. Findings: No fractures or dislocations are seen. The AC joint is normal. The adjacent left clavicle, left scapu la and ribs are normal. The soft tissues are unremarkable. Impression: Negative left shoulder.
--- NOTE | 2023-05-02 11:34 | XR_ITS ---
WS: [id number] Cervical spine, 3 views, 05/02/2023 Clinical Data: CHRONIC NECK PAIN Comparison: Cervical spine, 05/20/2013 Findings: No compression fractures are seen. There is degenerative disc narrowing at C5-C6 and C6-C7 with anterior osteophytes. There is no prevertebral soft tissue swelling. The odontoid is unremarkabl e. The soft tissues of the neck and the lung apices are normal. Impression: 1. Degenerative disc narrowing at C5-C6 and C6-C7. 2. Osteophytes at C5-C6 and C6-C7.
== END 2023-05-02 11:25 | disposition home or self-care (01) ==
PROVIDERS: PCP Internal Medicine; Visit Provider Nurse Practitioner Family
DX: M25.512 Pain in left shoulder (principal); M50.322 Other cervical disc degeneration at C5-C6 level; M25.78 Osteophyte, vertebrae; G89.29 Other chronic pain
CPT/HCPCS: 72040; 73030

== ENCOUNTER 2023-05-17 06:00 | Outpatient (RCR) | payer MEDICARE, SELFPAY | END 2023-06-15 23:59 | disposition home or self-care (01) | LOC: APT 06:00 | PROVIDERS: Visit Provider Internal Medicine | DX: M25.512 Pain in left shoulder (principal) | CPT/HCPCS: 97110; 97112; 97140; 97150; 97162 ==

== ENCOUNTER 2023-06-16 06:00 | Outpatient (RCR) | payer MEDICARE, SELFPAY | END 2023-07-16 23:59 | disposition home or self-care (01) | LOC: APT 06:00 | PROVIDERS: Visit Provider Internal Medicine | DX: M25.512 Pain in left shoulder (principal) | CPT/HCPCS: 97110; 97112; 97140 ==

== ENCOUNTER 2024-02-12 11:28 | Outpatient (CLI) | payer MEDICARE, SELFPAY ==
--- NOTE | 2024-02-12 11:38 | MM_ITS ---
WS: [id number] VIEWS: MLO, CC, and ML views both breasts. 3D digital tomosynthesis is also included in this exam. Comparison made with prior exam of 06/09/2020, 01/10/2021, 12/26/2021, 01/17/2023.. Findings: Stable appearing postoperative changes with metallic marker seen in the upper outer quadrant of the R IGHT breast. No new suspicious mass, architectural distortion or suspicious calcification in either b reast. There are scattered areas of fibroglandular density. MM/[place] [id number] Impression: BI-RADS: 2-Benign finding. FOLLOW-UP: 1 Year Follow-up This mammogram was also analyzed by the Computer Aided Detection System R2 Imag e Outside Laborer.
== END 2024-02-12 11:29 | disposition home or self-care (01) ==
LOC: RAD 11:29
PROVIDERS: PCP Internal Medicine; Visit Provider Internal Medicine
DX: R92.323 Mammographic fibroglandular density, bilateral breasts (principal); Z98.890 Other specified postprocedural states
CPT/HCPCS: 77062; G0279

== ENCOUNTER → 2024-03-02 09:44 | Outpatient (BNVA) | payer MEDICARE, SELFPAY | PROVIDERS: PCP Internal Medicine; Visit Provider Podiatrist Foot & Ankle Surgery | DX: L60.8 Other nail disorders; M72.2 Plantar fascial fibromatosis | CPT/HCPCS: 73630; 99203 ==

== ENCOUNTER → 2024-05-21 09:58 | Outpatient (BNVA) | payer MEDICARE, SELFPAY | PROVIDERS: PCP Internal Medicine; Referring Provider Internal Medicine; Visit Provider Student in an Organized Health Care Education/Training Program | DX: R03.0 Elevated blood-pressure reading, without diagnosis of hypertension (principal) | CPT/HCPCS: 99204 ==

== ENCOUNTER → 2024-12-28 14:01 | Outpatient (BNVA) | payer MEDICARE, SELFPAY | PROVIDERS: PCP Internal Medicine; Referring Provider Internal Medicine; Visit Provider Student in an Organized Health Care Education/Training Program | DX: D17.9 Benign lipomatous neoplasm, unspecified (principal) | CPT/HCPCS: 99214 ==

== ENCOUNTER 2025-01-13 06:18 | Day surgery (SDC) | payer MEDICARE, SELFPAY ==
[2025-01-13] VITALS (11 sets, daily range): BP systolic 105–169; BP diastolic 55–87; PULSE 54–69; RESP 16–18; TEMP 36.1–36.3; O2SAT 94–97; BMI 34.0
[2025-01-13] MEDS: sodium chloride 0.9% 1,000 ML 30 ML IV (07:03)
--- NOTE | 2025-01-13 07:07 | ANES.PREANE2 ---
Pre-Anesthetic Assessment Height/Weight: Height 1.63 m Weight 89.811 kg Temp Pulse Resp BP Pulse Ox O2 Del Method 97.0 F L 54 L 18 169/74 96 Room Air 01/13/25 06:43 01/13/25 06:43 01/13/25 06:43 01/13/25 06:43 01/13/25 06:43 01/13/25 06:43 Operation Date: 01/13/25 08:00 Proposed Procedures p Excision Subcutaneous right back mass 48032 R22.2(Right) - Ariel Davidson MD Familial anesthetic complications: none Was Beta Yunier taken within 24 hours: N/A Was Clonidine taken within 24 hours: N/A Last intake: Intake Last Liquid Date 01/12/25 Last Liquid Time 23:55 Last Solid Date 01/12/25 Last Solid Time 22:00 Social No alcohol and No tobacco Exam alert, oriented x 3, clear to auscultation bilaterally and regular rate & rhythm Airway Mallampati: Class II Dentition: false GI Gastroesophageal Reflux Disease Metabolic Thyroid Disease Anesthetic Plan ASA status: 3 Anesthesia: Choice Risk of > 500 ml blood loss (7ml/kg in children): No Medications/Allergies Home Medications ?Medication ?Instructions ?Recorded ?Confirmed ?Last Taken ?Type aspirin 81 mg tablet,delayed 81 mg PO ONCE 09/29/19 01/13/25 01/12/25 History release hydrochlorothiazide 25 mg tablet 25 mg PO BID 09/29/19 01/13/25 01/12/25 History levothyroxine 75 mcg tablet 75 mcg PO DAILY 09/29/19 01/13/25 01/12/25 History (Synthroid) acetaminophen 325 mg tablet 325 mg PO QID PRN Pain 05/29/24 01/13/25 Unknown History (Tylenol) biotin 10 mg tablet 10 mg PO DAILY 05/29/24 01/13/25 01/12/25 History celecoxib 100 mg capsule 200 mg PO BID 05/29/24 01/13/25 01/12/25 History cholecalciferol (vitamin D3) 50 50 mcg PO DAILY 05/29/24 01/13/25 01/12/25 History mcg (2,000 unit) tablet (Vitamin D3) escitalopram oxalate 20 mg tablet 20 mg PO DAILY 05/29/24 01/13/25 01/12/25 History lithium carbonate 150 mg capsule 150 mg PO BID 05/29/24 01/13/25 01/12/25 History lysine 500 mg tablet 1,000 mg PO DAILY 05/29/24 01/13/25 01/12/25 History omeprazole 20 mg capsule,delayed 20 mg PO DAILY 05/29/24 01/13/25 01/12/25 History release Allergies Allergy/AdvReac Type Severity Reaction Status Date / Time milnacipran Allergy Unknown Unknown Verified 01/13/25 06:42 nortriptyline Allergy Unknown ALGY-Swell Verified 01/13/25 06:42 Lip/Tongue/Throat Penicillins Allergy Unknown ALGY-Swell Verified 01/13/25 06:42 Lip/Tongue/Throat Current Medications Generic Name Dose Route Start Last Admin Trade Name Freq PRN Reason Stop Dose Admin Sodium Chloride 1,000 mls @ 30 mls/hr 01/13/25 06:30 01/13/25 07:03 Sodium Chloride 0.9% IV 01/14/25 06:29 30 mls/hr .Q24H SAMUEL Administration PFSH Anesthesia Social History Smoking and tobacco/nicotine status: never used tobacco/nicotine Alcohol intake: never Substance/Drug Use: never
--- NOTE | 2025-01-13 07:10 | W.PM.OPSUD ---
Surgery/Procedure H&P Update DATE OF PROCEDURE: January 13, 2025 DATE H&P PERFORMED: 12/28/24 H&P UPDATE INFORMATION: I have reviewed H&P completed within last 30 days, I have examined patient prior to procedure and No changes to prior documentation CHANGES TO PREVIOUS DOCUMENTATION: Marked lesion in preop are with patient's input PLANNED PROCEDURE: Operation Date: 01/13/25 08:00 Proposed Procedures p Excision Subcutaneous right back mass 87450 R22.2(Right) - Ariel Davidson MD
[2025-01-13] MEDS: VANCOMYCIN ADD-Vantage 1,000 MG in 0.9% NaCl ADD-Vantage 250 ML 250 MG IV (07:41)
[2025-01-13] MEDS: BUPivacaine 0.5% INJ 10 mL 5 ML INJECTION (08:23)
[2025-01-13] MEDS: lidocaine-epi 1% 20 mL INJ 5 ML INJECTION (08:24)
--- NOTE | 2025-01-13 08:29 | P.OP_ITS ---
Operative Report Date of procedure: January 13, 2025 Pre-op diagnosis: Dorsal soft tissue mass Post-op diagnosis: Dorsal lipoma Post-op findings: 4 x 3 cm dorsal lipoma Procedure done: Dorsal soft tissue mass excision Implants: N/A Specimens removed/disposition: Dorsal lipoma sent to pathology Pathology: Dorsal lipoma sent to pathology Surgeon: Ariel Davidson MD Medical Office Worker: N/A Anesthesia: MAC Estimated blood loss (mL): 5 Complications: N/A Findings: 4 x 3 cm dorsal lipoma Condition: stable Disposition: same day Brief History: 69-year-old female who presented with a dorsal soft tissue mass. Discussed risk and benefits and patient agreed to proceed with dorsal soft tissue mass excision. Procedure: Consent obtained in the preop area. Surgical site marked in preop with patient's assistance. Antibiotics administered in the OR. SCDs on and functioning. MAC induced. The back and neck was prepped and draped in the usual sterile fashion. A 3 cm incision was carried out directly over the le shiva. Electrocautery was used to dissect down the subcutaneous tissues. Electrocautery was used to dissect around the capsule of the lipoma. The entirety of the lipoma was excised with its capsule intact. It was passed and sent to pathology. Adequate hemostasis was achieved using electrocautery. Local infiltration was done using a combination of 1% lidocaine and 0.5% bupivacaine with epinephrine using 10 cc. Deep dermal layer was closed using 3- 0 Vicryl in a running fashion. Skin was closed with multiple vertical mattress sutures using 2-0 nylon. A sterile dressing was applied. The patient woke up from anesthesia without any complications.
--- NOTE | 2025-01-13 10:00 | ANE.PACU2 ---
Inpatient post-anesthesia follow up: Airway intact: Yes Vital signs: Temperature 97.4 F Pulse Rate 64 Respiratory Rate 16 Blood Pressure 105/87 Pulse Oximetry 96 Oxygen Delivery Me thod Room Air Oxygen Flow Rate Fraction of Inspir ed Oxygen Hydration adequate: Yes Nausea and vomiting: No Pain level: 1 Mental status: Baseline
== END 2025-01-13 10:00 | disposition home or self-care (01) ==
PROVIDERS: PCP Internal Medicine; Visit Provider Student in an Organized Health Care Education/Training Program
PROC: (CPT 21931; principal; 2025-01-13 07:50)
DX: D17.1 Benign lipomatous neoplasm of skin and subcutaneous tissue of trunk (principal); K21.9 Gastro-esophageal reflux disease without esophagitis; Z79.899 Other long term (current) drug therapy; Z79.890 Hormone replacement therapy; Z88.0 Allergy status to penicillin; Z88.8 Allergy status to other drugs, medicaments and biological substances
CPT/HCPCS: 21931; 88307; J1100; J2405; J2704; J3010; J3370; J3490; J7030; J7050; J9999

== ENCOUNTER → 2025-02-01 12:57 | Outpatient (BNVA) | payer MEDICARE, SELFPAY | PROVIDERS: PCP Internal Medicine; Visit Provider Student in an Organized Health Care Education/Training Program | DX: Z98.890 Other specified postprocedural states (principal) | CPT/HCPCS: 99024 ==

== ENCOUNTER 2025-05-10 12:41 | Outpatient (CLI) | payer MEDICARE, SELFPAY ==
--- NOTE | 2025-05-10 12:51 | MM_ITS ---
WS: [id number] BILATERAL 3D TOMOSYNTHESIS DIGITAL DIAGNOSTIC MAMMOGRAPHY WITH CAD CLINICAL INFORMATION: ABNORMAL MAMMOGRAM HISTORY: Breast pain around RIGHT nipple. COMPARISON: 02/12/2024 TECHNIQUE: Bilateral CC, MLO, and ML views. FINDINGS: Scattered fibroglandular densities bilaterally. Postoperative changes RIGHT breast with biopsy clip. This is stable in appearance. Dystrophic calcifications RIGHT breast. Vascular calcifications. No suspicious mammographic abnormalities in the area of pain RIGHT breast. Ultrasound described below. Unremarkable LEFT breast. ULTRASOUND BREAST RIGHT TECHNIQUE: Ultrasound right breast focused area of concern. CLINICAL INFORMATION: ABNORMAL MAMMOGRAM FINDINGS: Ultrasound RIGHT breast subareolar in the area of concern. Normal underlying parenchymal tissue. No suspicious underlying cystic or solid lesions. No acute abnormalities. Recommend return to annual diagnostic mammography MM/MM diag BI tomosynthesis [id number] IMPRESSION: DENSITY: There are scattered areas of fibroglandular density. BI-RADS: 2 - Benign. FOLLOW UP: 1 Year Follow-up Recommend return to annual diagnostic mammography.
== END 2025-05-10 12:42 | disposition home or self-care (01) ==
LOC: RAD 12:42
PROVIDERS: PCP Internal Medicine; Visit Provider Nurse Practitioner Family
DX: R92.8 Other abnormal and inconclusive findings on diagnostic imaging of breast (principal)
CPT/HCPCS: 76642; 77062; G0279

== ENCOUNTER → 2025-05-26 09:58 | Outpatient (BNVA) | payer MEDICARE, SELFPAY | PROVIDERS: PCP Internal Medicine; Visit Provider Nurse Practitioner Family | DX: L85.8 Other specified epidermal thickening (principal); D22.5 Melanocytic nevi of trunk; L57.8 Other skin changes due to chronic exposure to nonionizing radiation; L82.1 Other seborrheic keratosis | CPT/HCPCS: 99204 ==